=== PATIENT | female | born 1995 | race Caucasian/White ===

== ENCOUNTER 2017-02-14 13:23 | Emergency (ER) | payer MEDICAID ==
[~2017-02-14] VITALS: Ht 165.1 cm; Wt 66.5 kg
[~2017-02-14 13:23] MED LIST: DIAZ5TAB PO; DIAZ5TAB4 PO; DIPH25CA61 PO; FERR325T18 PO; GABA300C10 PO; HYDR-3245 PO; METR500T PO; MORP30TA3 PO; OXYC1TAB9 PO; OXYC20TA42 PO; OXYC5TAB3 PO; POLY17PO5 PO; RIVA10TA PO; SENN8.6C2 PO; TIZA2CAP PO; TRAM-47 PO; TRAM50TA2 PO; WARF5TAB PO
[2017-02-14 13:34] VITALS: BP 112/76
[2017-02-14] MEDS ORDERED: KETOROLAC 30 MG/1 ML ONE (14:48)
[2017-02-14] MEDS ORDERED: KETOROLAC 30 MG/1 ML IM ONE (15:00)
== END 2017-02-14 15:55 | disposition home or self-care (01) ==
LOC: ED 14:59
DX: J20.9 Acute bronchitis, unspecified (principal); H10.9 Unspecified conjunctivitis; M54.5 Low back pain; Z87.891 Personal history of nicotine dependence
CPT/HCPCS: 71020; 72110; 96372; 99284; J1885

== ENCOUNTER 2018-05-17 18:51 | Emergency (ER) | payer MEDICAID ==
[~2018-05-17] VITALS: Ht 165.1 cm; Wt 68.7 kg
[~2018-05-17 18:51] MED LIST changes: +OXYC-432 PO; -OXYC1TAB9 PO; -RIVA10TA PO; +RIVA10TA2 PO
[2018-05-17 18:54] VITALS: BP 134/100
[2018-05-17 19:45] LABS: BASOPHILS # (AUTO) 0.06 x10^3/uL (0-0.1); BASOPHILS % (AUTO) 1 % (0-1); EOSINOPHILS # (AUTO) 0.31 x10^3/uL (0-0.4); EOSINOPHILS % (AUTO) 3 % (1-7); LYMPHOCYTES # (AUTO) 3.03 x10^3/uL (1-3.4); LYMPHOCYTES % (AUTO) 30 % (22-44); MD NO; MEAN CORPUSCULAR HEMOGLOBIN 35.3 pg (27.0-34.8); MEAN CORPUSCULAR HGB CONC 34.8 g/dL (32.4-35.8); MEAN CORPUSCULAR VOLUME 101.6 fL (80-100); MEAN PLATELET VOLUME 7.9 fL (7.4-10.4); MONOCYTES # (AUTO) 0.66 x10^3/uL (0.2-0.8); MONOCYTES % (AUTO) 7 % (2-9); NEUTROPHILS # (AUTO) 6.09 x10^3/uL (1.8-6.8); NEUTROPHILS % (AUTO) 60 % (42-75); PLATELET COUNT 269 x10^3/uL (130-400); RED BLOOD COUNT 4.21 x10^6/uL (3.82-5.3); RED CELL DISTRIBUTION WIDTH 13.9 % (9.6-15.2)
[2018-05-17] MEDS ORDERED: CEFTRIAXONE 1,000 MG ONE (19:49)
[2018-05-17 19:50] LABS: ALBUMIN 4.4 g/dL (3.4-5.0); ANION GAP 7 mmol/L (5-15); CHLORIDE 108 mmol/L (98-107)
[2018-05-17] MEDS ORDERED: LIDOCAINE-MPF 1%, 2ML ONE (19:51)
[2018-05-17 19:55] LABS: CREATININE 0.83 mg/dL (0.55-1.02); TROPONIN I < 0.015 ng/mL (0.000-0.045)
--- NOTE | 2018-05-17 19:59 | NUR ---
PT HERE FOR CHEST PAIN STERNAL X 2 MONTHS. PAIN MOSTLY AT NIGHT CAUSING SOB. PAIN COMES AND GOES. PAIN HAS BEEN GETTING WORSE AND MORE OFTER. PT HAS HX OF PE. PT NO LONGER ON BLOOD THINNERS. PT STATES PAIN REPRODUCEABLE WHEN MD PALPATES STERNUM, ON VETERINARY SURGERY TECHNICIAN, CALL LIGHT IN REACH
[2018-05-17] MEDS ORDERED: MAALOX/HYOSCYAMINE/LIDOCAINE 45 ML BTL PO ONE (20:00)
[2018-05-17] MEDS ORDERED: MAALOX/HYOSCYAMINE/LIDOCAINE 45 ML BTL ONE (20:04)
--- NOTE | 2018-05-17 21:30 | NUR ---
PT RESTING AND WATCHING TV, NO DISTRESS NOTED, DENIES CURRENT CP, CALL LIGHT IN REACH
--- NOTE | 2018-05-17 21:43 | NUR ---
Patient/Caregiver given discharge instructions and they have confirmed that they understand the instructions. Patient ambulatory with steady gait.
== END 2018-05-17 21:46 | disposition home or self-care (01) ==
LOC: ED 21:40
DX: R07.89 Other chest pain (principal); Z72.9 Problem related to lifestyle, unspecified; F17.210 Nicotine dependence, cigarettes, uncomplicated
CPT/HCPCS: 36415; 71046; 80048; 82040; 84443; 84484; 85025; 85379; 93005; 99284

== ENCOUNTER 2019-09-20 19:32 | Emergency (ER) | payer SELFPAY ==
[~2019-09-20] VITALS: Ht 165.1 cm; Wt 68.4 kg
[~2019-09-20 19:32] MED LIST changes: +MORP-30 PO; -MORP30TA3 PO; -WARF5TAB PO; +WARF5TAB2 PO
[2019-09-20] MEDS ORDERED: SODIUM CHLORIDE FLUSH 10ML SYR IVF ONE (20:00)
[2019-09-20] MEDS ORDERED: SODIUM CHLORIDE 0.9% 1,000ML IVBOLUS ONE ×2 (20:00→21:00)
[2019-09-20] MEDS ORDERED: FAMOTIDINE 20 MG/2 ML IVPush ONE (20:00)
[2019-09-20] MEDS ORDERED: ONDANSETRON 2MG/ML, 2ML IVPush ONE ×2 (20:00→21:00)
[2019-09-20] MEDS ORDERED: FAMOTIDINE 20 MG/2 ML ONE (20:01)
[2019-09-20] MEDS ORDERED: ONDANSETRON 2MG/ML, 2ML ONE ×2 (20:01→21:12)
[2019-09-20 20:23] LABS: BASOPHILS # (AUTO) 0.03 x10^3/uL (0-0.1); BASOPHILS % (AUTO) 0 % (0-1); EOSINOPHILS # (AUTO) 0.06 x10^3/uL (0-0.4); EOSINOPHILS % (AUTO) 1 % (1-7); LYMPHOCYTES # (AUTO) 1.65 x10^3/uL (1-3.4); LYMPHOCYTES % (AUTO) 15 % (22-44); MD MORPH REVIEW ONLY; MEAN CORPUSCULAR HEMOGLOBIN 34.2 pg (27.0-34.8); MEAN CORPUSCULAR HGB CONC 33.9 g/dL (32.4-35.8); MEAN CORPUSCULAR VOLUME 100.8 fL (80-100); MEAN PLATELET VOLUME 7.9 fL (7.4-10.4); MONOCYTES # (AUTO) 0.48 x10^3/uL (0.2-0.8); MONOCYTES % (AUTO) 4 % (2-9); NEUTROPHILS # (AUTO) 9.06 x10^3/uL (1.8-6.8); NEUTROPHILS % (AUTO) 80 % (42-75); PLATELET COUNT 247 x10^3/uL (130-400); RED BLOOD COUNT 4.23 x10^6/uL (3.82-5.3)
[2019-09-20 20:24] LABS: RED CELL DISTRIBUTION WIDTH 17.5 % (9.6-15.2)
[2019-09-20 20:30] LABS: ALBUMIN 4.5 g/dL (3.4-5.0); ANION GAP 14 mmol/L (5-15); CALCIUM 9.3 mg/dL (8.5-10.1); CHLORIDE 109 mmol/L (98-107); CREATININE 1.13 mg/dL (0.55-1.02)
[2019-09-20 20:34] LABS: ALKALINE PHOSPHATASE 81 U/L (45-117); BILIRUBIN,TOTAL 1.4 mg/dL (0.2-1.0); TOTAL PROTEIN 8.1 g/dL (6.4-8.2)
[2019-09-20 20:40] LABS: ALANINE AMINOTRANSFERASE 60 U/L (12-78)
[2019-09-20 20:41] LABS: ANISOCYTOSIS 1+
[2019-09-20 20:42] LABS: <PLATELET ESTIMATE> ADEQUATE; <PLT MORPHOLOGY> NORMAL PLT MORPH
[2019-09-20] MEDS ORDERED: KETOROLAC 30 MG/1 ML ONE (21:49)
[2019-09-20 21:54] VITALS: BP 127/75
[2019-09-20] MEDS ORDERED: LORazepam 2 MG/ML, 1ML ONE (21:59)
[2019-09-20] MEDS ORDERED: KETOROLAC 30 MG/1 ML IVPush ONE (22:00)
[2019-09-20] MEDS ORDERED: LORazepam 2 MG/ML, 1ML IVPush ONE (22:00)
[2019-09-20 22:02] LABS: MICROSCOPIC AUTO
[2019-09-20 22:11] LABS: AMPHETAMINE SCREEN, URINE Negative (Negative); BARBITURATE SCREEN, URINE Negative (Negative); BENZODIAZEPINE SCREEN, URINE Positive (Negative); CANNABINOID SCREEN, URINE Negative (Negative); COCAINE SCREEN, URINE Negative (Negative); METHADONE SCREEN, URINE Negative (Negative); OPIATE SCREEN, URINE Negative (Negative)
--- NOTE | 2019-09-20 22:13 | NUR ---
PATIENT STEADILY AMBULATED TO THE BATHROOM AND BACK, PATIENTS HR IMPROVED AFTER THE FLUIDS, MEDICATONS GIVEN
== END 2019-09-20 23:23 | disposition home or self-care (01) ==
LOC: ED 21:35
DX: R11.2 Nausea with vomiting, unspecified (principal); R19.7 Diarrhea, unspecified; M54.9 Dorsalgia, unspecified; R00.0 Tachycardia, unspecified
CPT/HCPCS: 36415; 80053; 80307; 81001; 83690; 84703; 85025; 87086; 93005; 96361; 96374; 96375; 96376; 99284; J1885; J2060; J2405; J3490; J7030

== ENCOUNTER 2020-01-02 18:52 | Emergency (ER) | payer MEDICAID ==
[~2020-01-02] VITALS: Ht 165.1 cm; Wt 67.8 kg
[~2020-01-02 18:52] MED LIST changes: -OXYC-432 PO; +OXYC1TAB18 PO
--- NOTE | 2020-01-02 19:59 | NUR ---
PT STATES HAVING PAIN AND ABCESS UNDER HER RT ARMPIT A WEEK AGO AND HAS BEEN GETTING WORSE. PT ANXIOUS, ABOUT MISSING WORK OR SCHOOL, SITTING IN GURNEY, ON PULSE OX. ERP TO [facility].
[2020-01-02] MEDS ORDERED: LIDOCAINE 1%-EPI 1:100K, 20ML SQ ONE (20:30)
[2020-01-02 20:40] VITALS: BP 132/91
[2020-01-02] MEDS ORDERED: LIDOCAINE-MPF 1%, 2ML ONE (20:55)
--- NOTE | 2020-01-02 21:02 | NUR ---
ERP AT BEDSIDE FOR I/D
[2020-01-02] MEDS ORDERED: NEOSPORIN OINT. PKT 1 PACKET ONE (21:43)
== END 2020-01-02 22:10 | disposition home or self-care (01) ==
LOC: ED 22:00
DX: L03.111 Cellulitis of right axilla (principal); L73.2 Hidradenitis suppurativa; R00.0 Tachycardia, unspecified; Z72.9 Problem related to lifestyle, unspecified; F17.290 Nicotine dependence, other tobacco product, uncomplicated
CPT/HCPCS: 10060; 99283